=== PATIENT | male | born 1960 ===

== ENCOUNTER 2019-03-02 14:19 | Emergency (ER) | payer OTHER ==
[~2019-03-02] VITALS: Ht 172.7 cm; Wt 99.8 kg
[2019-03-02 19:51] VITALS: BP 130/91
[2019-03-02] MEDS ORDERED: LIDOCAINE 1% HCL (LOCAL ANESTH.) INJ 20ML MDV IJ ONE (20:15)
[2019-03-02] MEDS ORDERED: BACITRACIN TOP OINT 1 UD PKG TOP ONE (20:15)
[2019-03-02] MEDS ORDERED: TETANUS-DIPTH-ACEL PERTUSSIS 0.5ML SYRG IM ONE (21:45)
== END 2019-03-02 22:12 | disposition home or self-care (01) ==
LOC: ER 14:19
DX: S61.211A Laceration without foreign body of left index finger without damage to nail, initial encounter (principal); I10 Essential (primary) hypertension; Z95.1 Presence of aortocoronary bypass graft; W26.0XXA Contact with knife, initial encounter; Y93.89 Activity, other specified; Y92.89 Other specified places as the place of occurrence of the external cause; Y99.8 Other external cause status
CPT/HCPCS: 12001; 73140; 90471; 90715; 99283; J2001